=== PATIENT | female | born 1950 | race Caucasian/White ===

== ENCOUNTER → 2016-06-12 | Outpatient (CLI) | payer BC ==
--- NOTE | 2016-06-12 09:49 | MM ---
Reason for exam: history of breast cancer, conservation therapy. Last mammogram was performed 1 year ago. History: Patient is postmenopausal, has history of breast cancer at age 58, and had previous chest radiation therapy at age 58. Family history of breast cancer in mother at age 78, breast cancer in maternal cousin, and breast cancer in sister at age 55. Chemotherapy, 2010. Radiation therapy of the left breast, 2009. Malignant left breast needle localization of the left breast, March 31, 2009. Malignant left mammotome panel of the left breast, March 19, 2009. Malignant US left guided VAD of the left breast, March 19, 2009. Benign excisional biopsy of the left breast, January 05, 1998. Took hormonal contraceptives for 1 year beginning at age 20. Taking estrogen for 7 years 2 months beginning at age 51. Taking progesterone for 7 years 2 months beginning at age 51. Taking antineoplastic for 5 months beginning at age 59. Physical Findings: Nurse did not find any significant physical abnormalities on exam. MG 3D Diag Mammo W/Cad MERLIN Bilateral CC and MLO view(s) were taken. Prior study comparison: June 09, 2015, bilateral MG 3d diag mammo w/cad MERLIN. June 08, 2014, bilateral MG diagnostic mammo w CAD MERLIN. The breast tissue is heterogeneously dense. This may lower the sensitivity of mammography. Stable post operative left breast changes. No significant new findings when compared with previous films. These results were verbally communicated with the patient and result sheet given to the patient on 06/12/16. ASSESSMENT: Benign, BI-RAD 2 RECOMMENDATION: Follow-up diagnostic mammogram of both breasts in 1 year. Manage patient on a clinical basis.
== END | disposition home or self-care (01) ==
LOC: RADMAMWWP 08:49
PROVIDERS: ATTEND Obstetrics & Gynecology
DX: Z85.3 Personal history of malignant neoplasm of breast (principal)
CPT/HCPCS: 77051 ×2; G0204; G0279

== ENCOUNTER → 2016-06-12 | Outpatient (CLI) | payer BC ==
[2016-06-12 10:29] LABS: ALT 47 U/L (9-52); AST 30 U/L (14-36); Cholesterol 201 mg/dL (<200); Creatine Kinase 58 U/L (30-135); HDL Cholesterol 77 mg/dL (40-60); Triglycerides 78 mg/dL (<150)
== END | disposition home or self-care (01) ==
LOC: LABWHC1 09:32
PROVIDERS: ATTEND Internal Medicine
DX: E78.2 Mixed hyperlipidemia (principal)
CPT/HCPCS: 36415; 80061; 82550; 84450; 84460

== ENCOUNTER → 2017-01-19 | Outpatient (CLI) | payer BC ==
[2017-01-19 08:59] LABS: CH 30.4; CHCM 33.2; HCT 42.2 % (34.0-46.0); HDW 2.22; HGB 13.6 gm/dL (11.4-16.0); MCH 29.6 pg (25.0-35.0); MCHC 32.2 g/dL (31.0-37.0); MCV 91.9 fL (80.0-100.0); Mean Platelet Volume 7.4; RBC 4.59 m/uL (3.80-5.40); RDW 13.6 % (11.5-15.5); WBC 5.3 k/uL (3.8-10.6)
[2017-01-19 09:12] LABS: ALT 36 U/L (9-52); AST 30 U/L (14-36); Alkaline Phosphatase 65 U/L (38-126); Anion Gap 11 mmol/L; Blood Urea Nitrogen 16 mg/dL (7-17); Calcium 9.8 mg/dL (8.4-10.2); Carbon Dioxide 25 mmol/L (22-30); Chloride 108 mmol/L (98-107); Cholesterol 176 mg/dL (<200); Glucose 84 mg/dL (74-99); HDL Cholesterol 72 mg/dL (40-60); Non-African American GFR(MDRD) >60 (>60 ml/min/1.73 sqM); Potassium 4.5 mmol/L (3.5-5.1); Sodium 144 mmol/L (137-145); Total Bilirubin 0.9 mg/dL (0.2-1.3)
== END | disposition home or self-care (01) ==
LOC: LABWHC1 08:41
PROVIDERS: ATTEND Internal Medicine
DX: Z00.00 Encounter for general adult medical examination without abnormal findings (principal); I11.9 Hypertensive heart disease without heart failure; E03.9 Hypothyroidism, unspecified; E78.2 Mixed hyperlipidemia; K21.0 Gastro-esophageal reflux disease with esophagitis
CPT/HCPCS: 36415; 80053; 80061; 82272; 84439; 84443; 85027

== ENCOUNTER → 2017-05-04 | Outpatient (CLI) | payer BC ==
[2017-05-04 10:37] LABS: Anion Gap 7 mmol/L; Blood Urea Nitrogen 21 mg/dL (7-17); Calcium 10.5 mg/dL (8.4-10.2); Carbon Dioxide 28 mmol/L (22-30); Chloride 106 mmol/L (98-107); Creatine Kinase 57 U/L (30-135); Glucose 94 mg/dL (74-99); Magnesium 1.9 mg/dL (1.6-2.3); Non-African American GFR(MDRD) >60 (>60 ml/min/1.73 sqM); Potassium 4.8 mmol/L (3.5-5.1); Sodium 141 mmol/L (137-145)
== END | disposition home or self-care (01) ==
LOC: LABWHC1 09:45
PROVIDERS: ATTEND Psychiatry & Neurology Neurology
DX: G62.9 Polyneuropathy, unspecified (principal); R25.2 Cramp and spasm; Z85.3 Personal history of malignant neoplasm of breast
CPT/HCPCS: 36415; 80048; 82306; 82550; 82607; 83735; 84207

== ENCOUNTER → 2017-11-06 | Outpatient (CLI) | payer BC ==
--- NOTE | 2017-11-06 12:50 | BD ---
EXAMINATION TYPE: Axial Bone Density DATE OF EXAM: 11/06/2017 COMPARISON: 05.04.2014 CLINICAL HISTORY: 67 YR OLD FEMALE.....ICD-10 CODE: Z79.890 POST MENOPAUSAL W/O HRT, C50.311 BREAST CA Height: 64.5 Weight: 154 FRAX RISK QUESTIONS: Family History (Parent hip fracture): NO HIP FX Glucocorticoids (More than 3mos): YES (Ex: prednisone, prednisolone, methylprednisolone, dexamethasone, and hydrocortisone). History of Fracture in Adulthood: YES Secondary Osteoporosis: YES 2. Hyperthyroidism: YES RISK FACTORS HISTORY OF: RT FOOT AND TOES, >50 YRS OLD Family History of Osteoporosis: YES HER MOTHER WITHOUT HIP FX Active: YES Diet low in dairy products/other sources of calcium: NO Postmenopausal woman: NATURAL IN LATE 40s BCPs IN PAST ONLY FOR ABOUT 2 YRS, HRT FOR 5-6 YRS IN PAST HYPERTHYROIDISM ONLY, NOT PARATHYROID MEDICATIONS: Prednisone or other steroids: EXEMESTANE FOR BREAST CA, How Lon DAYS RECENTLY, 5 YRS IN PAST FOR FIRST BREAST CA Thyroid Medications: YES, SYNTHROID, FOR ABOUT 40 YRS Additional Medications: CALCIUM AND VIT D, HX OF CHEMO AND RADIATION, BP MEDS, STATINS FOR CHOLESTERO L Additional History: LT BREAST CANCER, 2009, RT BREAST CA, 2017...BILAT MASTECTOMY, GRAVES DISEASE EXAM MEASUREMENTS: Bone mineral densitometry was performed using the [employer] System. Bone mineral density as measured about the Lumbar spine is: ----- L1-L4(G/cm2): 1.133 T Score Values are as follows: ----- L1: -0.8 ----- L2: -1.2 ----- L3: -0.2 ----- L4: 0.3 ----- L1-L4: -0.4 Bone mineral density has: Increased 0.9% since study of: 05.04.2014 Bone mineral density about the R hip (g/cm2): 0.971 Bone mineral density about the L hip (g/cm2): 0.956 T Score values are as follows: -----R Neck: -0.5 -----L Neck: -0.4 -----R Total: -0.3 -----L Total: -0.4 Bone mineral density has: Decreased -2.2% since study of: 05.04.2014 FRAX%S: THERE IS A 19.1% CHANCE OF A MAJOR OSTEOPOROTIC FX AND A 1.1% FOR HIP FX....PROBABILITY OF FX IN 10 YRS TIME IMPRESSION: Normal bone density NOTE: T-SCORE=SD OF THE YOUNG ADULT MEAN.
== END | disposition home or self-care (01) ==
LOC: RADBDWWP 09:04
PROVIDERS: ATTEND Internal Medicine Hematology & Oncology
DX: C50.311 Malignant neoplasm of lower-inner quadrant of right female breast (principal); C50.412 Malignant neoplasm of upper-outer quadrant of left female breast; N95.1 Menopausal and female climacteric states; M85.89 Other specified disorders of bone density and structure, multiple sites; Z79.890 Hormone replacement therapy
CPT/HCPCS: 77080

== ENCOUNTER → 2018-07-09 | Outpatient (CLI) | payer BC ==
--- NOTE | 2018-07-09 10:39 | XR ---
EXAMINATION TYPE: XR chest 2V DATE OF EXAM: 07/09/2018 COMPARISON: 02/20/2013 HISTORY: Shortness of breath TECHNIQUE: Frontal and lateral views of the chest are obtained. FINDINGS: Scattered senescent parenchymal changes noted. Hyperinflation compatible with COPD. No evidence for infiltrate. No evidence for atelectasis. Heart size is stable. Mediastinal structures are stable and grossly unremarkable. No evidence for hilar prominence. Degenerative changes dorsal spine. IMPRESSION: 1. No evidence for acute pulmonary disease.
== END | disposition home or self-care (01) ==
LOC: RADXRMAIN 10:11
PROVIDERS: ATTEND Internal Medicine
DX: R05 Cough (principal)
CPT/HCPCS: 71046

== ENCOUNTER → 2018-10-25 | Outpatient (CLI) | payer BC ==
[2018-10-25 10:14] LABS: HCT 42.3 % (34.0-46.0); HGB 13.7 gm/dL (11.4-16.0); MCH 28.8 pg (25.0-35.0); MCHC 32.4 g/dL (31.0-37.0); MCV 88.9 fL (80.0-100.0); Mean Platelet Volume 6.9; Platelet Count 284 k/uL (150-450); RBC 4.76 m/uL (3.80-5.40); RDW 13.7 % (11.5-15.5); WBC 5.6 k/uL (3.8-10.6)
[2018-10-25 16:38] LABS: Albumin 4.5 g/dL (3.80-4.90); Albumin/Globulin Ratio 2.14 (1.60-3.17); Anion Gap 7.1 mmol/L (4.00-12.00); Calcium 9.9 mg/dL (8.7-10.3); Carbon Dioxide 26.9 mmol/L (21.6-31.8); Globulin 2.1 g/dL (1.6-3.3); LDL Cholesterol,Calculated 85.2 mg/dL (0.0-131.0); Potassium 4.6 mmol/L (3.5-5.5); Total Bilirubin 1.1 mg/dL (0.2-1.2); Total Protein 6.6 g/dL (6.2-8.2); VLDL Calculation 13.8 mg/dL (5.00-40.00)
[2018-10-25 16:47] LABS: T4, Free (Free Thyroxine) 1.5 ng/dL (0.80-1.80)
== END | disposition home or self-care (01) ==
LOC: LABWHC1 09:35
PROVIDERS: ATTEND Internal Medicine
DX: Z00.00 Encounter for general adult medical examination without abnormal findings (principal); E03.9 Hypothyroidism, unspecified; K21.0 Gastro-esophageal reflux disease with esophagitis; I11.9 Hypertensive heart disease without heart failure; C50.911 Malignant neoplasm of unspecified site of right female breast
CPT/HCPCS: 36415; 80053; 80061; 84439; 84443; 85027

== ENCOUNTER 2019-03-28 10:54 | Day surgery (SDC) | payer MEDICARE, BC ==
[2019-03-26 15:06] VITALS: BMI 24.2
[~2019-03-28 10:54] MED LIST: LACTATED RINGERS 1,000 ML IV SCH; LIDOCAINE 1% 20 ML VIAL (10MG/ML) FOR IV START INTRADERMA PRN
[2019-03-28 11:15] VITALS: RESP 16; TEMP 97
[2019-03-28] MEDS ORDERED: PROPOFOL 10 MG/ML 20 ML VIAL IV ONE (11:49)
--- NOTE | 2019-03-28 12:07 | P.PCN ---
Date of Procedure: 03/28/19 Procedure(s) Performed: BRIEF HISTORY: Patient is a 68-year-old pleasant female scheduled for an elective colonoscopy as a part of evaluation of prior history of colon polyps and family history of colon cancer. Her father was diagnosed with colon cancer at age 52. PROCEDURE PERFORMED: Colonoscopy. PREOPERATIVE DIAGNOSIS: History Of colon polyps/family history of colon cancer. IV sedation per Anesthesia. PROCEDURE: After informed consent was obtained, the patient, was brought into the endoscopy unit. IV sedation was administered by Anesthesia under continuous monitoring. Digital rectal examination was normal. Initially the Olympus CF-160 flexible video pediatric colonoscope was then inserted in the rectum, gradually advanced into the cecum without any difficulty. Careful examination was performed as the scope was gradually being withdrawn. Ileocecal valve and the appendiceal orifice were visualized and appeared normal. Prep was excellent. Mucosa of the cecum, ascending colon, transverse colon, descending colon, sigmoid colon, and rectum appeared normal. Moderate left-sided diverticulosis seen. Retroflexion was performed in the rectum and no lesions were seen. The patient tolerated the procedure well. IMPRESSION: Normal-appearing colon from rectum to cecum with no evidence of colorectal neoplasia . Moderate left-sided diverticulosis. RECOMMENDATIONS: Findings of this examination were discussed with the patient as well as a family. She was advised to have a repeat surveillance colonoscopy in 5 years from now because of the family history of colon cancer and prior history of colon polyps.
[2019-03-28] MEDS ORDERED: IV FLUID CONTINUATION 1,000 ML IV ONE (12:10)
[2019-03-28 12:12] VITALS: BP 122/77; PULSE 81
== END 2019-03-28 12:48 | disposition home or self-care (01) ==
LOC: ORWHC2ENDO 10:54
PROVIDERS: ATTEND Internal Medicine Gastroenterology
DX: Z12.11 Encounter for screening for malignant neoplasm of colon (principal); K57.30 Diverticulosis of large intestine without perforation or abscess without bleeding; Z86.010 Personal history of colon polyps; Z80.0 Family history of malignant neoplasm of digestive organs; I25.10 Atherosclerotic heart disease of native coronary artery without angina pectoris; I10 Essential (primary) hypertension; E78.5 Hyperlipidemia, unspecified; C50.919 Malignant neoplasm of unspecified site of unspecified female breast; E07.9 Disorder of thyroid, unspecified; K57.90 Diverticulosis of intestine, part unspecified, without perforation or abscess without bleeding; Z79.811 Long term (current) use of aromatase inhibitors; Z79.82 Long term (current) use of aspirin; Z79.890 Hormone replacement therapy; Z79.899 Other long term (current) drug therapy; Z88.5 Allergy status to narcotic agent; Z88.2 Allergy status to sulfonamides
CPT/HCPCS: J2704; G0105

== ENCOUNTER → 2019-11-21 | Outpatient (CLI) | payer MEDICARE, BC ==
--- NOTE | 2019-11-24 08:01 | BD ---
EXAMINATION TYPE: Axial Bone Density DATE OF EXAM: 11/21/2019 COMPARISON: 11/06/2017 CLINICAL HISTORY: Postmenopausal female. Height: 64.5 IN Weight: 156 LBS RISK FACTORS HISTORY OF: Family History of Osteoporosis: YES MOTHER Active: YES Postmenopausal woman: AGE 49 Take estrogen and/or progesterone medications: NOT NOW How lon YEARS MEDICATIONS: Thyroid Medications: YES Which medication: Levothyroxine How Lon+ YEARS Additional Medications: CALCIUM, VIT D, LEVOTHYROXINE, 81 MG ASPIRIN, ENALAPRIL, ATORVASTATIN, EXEMES TANE, MAGNESIUM, K COMPLEX, B VIT Additional History: BREAST CANCER WITH CHEMO AND RADIATION (LT BREAST 2008); BREAST CANCER (RT DONALD AST 2018) EXAM MEASUREMENTS: Bone mineral densitometry was performed using the [employer] System. Bone mineral density as measured about the Lumbar spine is: ----- L1-L4(G/cm2): 1.043 T Score Values are as follows: ----- L2: -1.5 ----- L3: -0.7 ----- L4: -1.0 ----- L1-L4: -1.1 Bone mineral density has: Decreased -7.4% since study of: 11/06/2017 Bone mineral density about the R hip (g/cm2): 0.963 Bone mineral density about the L hip (g/cm2): 0.960 T Score values are as follows: -----R Neck: -0.6 -----L Neck: -0.7 -----R Total: -0.3 -----L Total: -0.3 Bone mineral density has: Increased 0.5% since study of: 11/06/2017 IMPRESSION: Osteopenia (T Score between -2.5 and -1) at 2 consecutive levels in the low back. Bone density decrea se or diminished from prior at this level. There is slightly increased risk of fracture and the patient may be considered for treatment. Re-Screen 2-5 years. NOTE: T-SCORE=SD OF THE YOUNG ADULT MEAN.
== END | disposition home or self-care (01) ==
LOC: RADBDWWP 10:27
PROVIDERS: ATTEND Internal Medicine Hematology & Oncology
DX: M85.88 Other specified disorders of bone density and structure, other site (principal); Z79.890 Hormone replacement therapy; Z88.2 Allergy status to sulfonamides; Z88.5 Allergy status to narcotic agent
CPT/HCPCS: 77080

== ENCOUNTER → 2021-11-21 | Outpatient (CLI) | payer MEDICARE ==
--- NOTE | 2021-11-21 17:42 | BD ---
EXAMINATION TYPE: Axial Bone Density DATE OF EXAM: 11/21/2021 COMPARISON: 11/21/2019 CLINICAL HISTORY: 71 years year old Female. ICD-10 CODE: Z79.890 POST MENOPAUSAL WITH HRT Height: 64.5 IN Weight: 146 LBS RISK FACTORS HISTORY OF: Family History of Osteoporosis: YES MOTHER Active: YES Postmenopausal woman: AGE 54 Take estrogen and/or progesterone medications: NOT NOW How long: TOOK FOR 5 YEARS MEDICATIONS: Thyroid Medications: YES Which medication: Levothyroxine How Lon+ YEARS Additional Medications: CALCIUM, VIT D, EXEMESTANE,BLOOD PRESSURE MEDS, CHOLESTEROL MEDS, ASPIRIN, LE VOTHYROXINE, MULTI VIT ,OMEGA PLUS TURMERIC, DAILY GREENS, VIT C, Additional History: BREAST CANCER WITH CHEMO AND RADIATION EXAM MEASUREMENTS: Bone mineral densitometry was performed using the [employer] System. Bone mineral density as measured about the Lumbar spine is: ----- L1-L4(G/cm2): 1.077 T Score Values are as follows: ----- L1: -1.6 ----- L2: -1.4 ----- L3: -0.6 ----- L4: -0.2 ----- L1-L4: -0.9 Bone mineral density has: Increased 3.7% since study of: 11/21/2019 Bone mineral density about the R hip (g/cm2): 0.961 Bone mineral density about the L hip (g/cm2): 0.954 T Score values are as follows: -----R Neck: -0.6 -----L Neck: -0.6 -----R Total: -0.1 -----L Total: -0.2 Bone mineral density has: Increased 2.4% since study of: 11/21/2019 FRAX%s: The graph provided illustrates a 8.0 chance for a major osteoporotic fx and a 0.6 chance for the hips probability for fx in 10 years time. IMPRESSION: Normal (Values between +1 and -1 indicate normal bone mass). Consider repeating this study in 5 year s or sooner if there is some new clinical indication. NOTE: T-SCORE=SD OF THE YOUNG ADULT MEAN.
== END | disposition home or self-care (01) ==
LOC: RADBDWWP 12:27
PROVIDERS: ATTEND Internal Medicine Hematology & Oncology
DX: C50.311 Malignant neoplasm of lower-inner quadrant of right female breast (principal); Z78.0 Asymptomatic menopausal state
CPT/HCPCS: 77080

== ENCOUNTER → 2022-06-02 | Outpatient (CLI) | payer MEDICARE ==
--- NOTE | 2022-06-03 07:38 | MR ---
EXAMINATION TYPE: MR brain wo/w con DATE OF EXAM: 06/02/2022 9:13 AM CLINICAL INDICATION:Female, 71 years old with history of R51.9; COMPARISON: None TECHNIQUE: Multi planar, multi sequence imaging was performed through the brain including: T1, T2, In version recovery, susceptibility weighted imaging and gradient echo imaging and Diffusion weighted im aging. The patient was then given intravenous contrast and multi planar, T1 fat-saturation images wer e obtained. IV Contrast: 7 cc Gadavist FINDINGS: The issa-white junctions, ventricular system, basal cisterns appear unremarkable. Diffusion-weighted imaging shows no evidence of restricted diffusion to suggest acute/subacute infarct. Intracranial art erial flow voids are maintained. Midline structures show no abnormality. Scattered foci of high T2 si gnal intensity are seen within the periventricular white matter. The susceptibility weighted images d o not reveal any evidence for micro-hemorrhage. After administration of gadolinium, no abnormal enhan cement is seen. The bone marrow signal is within normal limits. Paranasal sinuses and mastoid air cells: Mild scattered paranasal sinus disease. Visualized orbits: Orbital contents are intact. IMPRESSION: 1. No evidence of intracranial mass, acute/subacute infarct, or abnormal enhancement. 2. Nonspecific white matter changes, likely related to small vessel ischemic disease
== END | disposition home or self-care (01) ==
LOC: RADMRIMAIN 08:23
PROVIDERS: ATTEND Internal Medicine
DX: R90.82 White matter disease, unspecified (principal); R51.9 Headache, unspecified
CPT/HCPCS: 70553; A9585

== ENCOUNTER → 2022-10-25 | Outpatient (CLI) | payer MEDICARE ==
--- NOTE | 2022-10-25 14:19 | US ---
EXAMINATION TYPE: US kidneys/renal and bladder DATE OF EXAM: 10/25/2022 COMPARISON: CT 09/30/2013. CLINICAL INDICATION: Female, 72 years old with history of N18.31 CHRONIC KIDNEY DISEASE, STAGE 3A; Ab normal labs. No pain. EXAM MEASUREMENTS: Right Kidney: 9.6 x 4.3 x 4.0 cm Left Kidney: 9.4 x 4.3 x 4.7 cm Right Kidney: Medial anechoic lesion at hilum = 1.9 x 1.1 cm. Upper lateral cystic appearing lesion= 1.0 x 1.1 x 0.8 cm Left Kidney: No hydronephrosis or masses seen Bladder: distended, anechoic Bilateral Jets seen IMPRESSION: 1. No evidence for obstructive uropathy. 2. Right kidney renal sinus anechoic area could represent peripelvic cyst versus dilated calyx.
== END | disposition home or self-care (01) ==
LOC: RADUSWWP 13:00
PROVIDERS: ATTEND Internal Medicine
DX: N18.31 Chronic kidney disease, stage 3a (principal)
CPT/HCPCS: 76770

== ENCOUNTER → 2022-11-14 | Outpatient (CLI) | payer MEDICARE ==
--- NOTE | 2022-11-15 19:59 | MR ---
EXAMINATION TYPE: MR kidney wo/w con DATE OF EXAM: 11/14/2022 3:04 PM INDICATION: Patient age:Female; 72 years old; Reason for study: N28.1;. Renal cyst, Abn U/S, Hx Breast Cancer COMPARISON: Ultrasound 10/25/2022 TECHNIQUE: Multiplanar multi-sequence imaging was performed without contrast. Post contrast imaging was performed. Post IV contrast subtraction images were also submitted for review. IV Contrast: 6.5 cc Gadavist FINDINGS: LOWER CHEST: Bilateral breast implants are present. ABDOMEN Liver: Left hepatic lobe cysts with internal thin septation measuring 14 x 10 mm. No abnormal postcon trast enhancement. Gallbladder and Bile ducts: The gallbladder appears surgically absent. Common hepatic bile duct measu ring 12 mm and common bile duct measuring 6 mm. These findings can be seen in post cholecystectomy ph ysiology.: Pancreas: Unremarkable. Spleen: Unremarkable. Adrenal glands: Unremarkable. Kidneys: No suspicious masses. Findings an ultrasound correlate with renal pelves. Right cortical eve al cyst measuring 10 mm which is high T2 signal in the superior pole. No abnormal postcontrast enhanc ement. Stomach and Bowel: Unremarkable as visualized. Peritoneum: No evidence of pneumoperitoneum or free fluid. Vasculature: Unremarkable. No aortic aneurysm. Musculoskeletal: The osseous structures appear intact. Lymph Nodes: No gross evidence for lymphadenopathy. Abdominal wall: Unremarkable. IMPRESSION: Prominent bilateral renal pelves and a simple right renal cyst. No renal masses. Findings similar to ultrasound findings from 10/25/2022
== END | disposition home or self-care (01) ==
LOC: RADMRIMAIN 13:54
PROVIDERS: ATTEND Internal Medicine
DX: N28.1 Cyst of kidney, acquired (principal)
CPT/HCPCS: 74183; A9585

== ENCOUNTER → 2023-01-01 | Outpatient (CLI) | payer MEDICARE ==
[2023-01-01 13:30] LABS: Basophils # (A) 0.06 X 10*3/uL (0.00-0.10); Basophils % (A) 1.3 %; Eosinophils # (A) 0.21 X 10*3/uL (0.04-0.35); Eosinophils % (A) 4.6 %; HCT 43.6 % (37.2-46.3); Lymphocytes # (A) 1.23 X 10*3/uL (0.90-5.00); Lymphocytes % (A) 26.9 %; MCH 29.7 pg (27.0-32.0); MCHC 32.1 d/dL (32.0-37.0); MCV 92.4 FL (80.0-97.0); Mean Platelet Volume 10.2 FL (9.5-12.2); Monocytes # (A) 0.43 X 10*3/uL (0.20-1.00); Monocytes % (A) 9.4 %; NRBC Per 100 WBC 0 X 10*3/uL (0.00-0.01); Neutrophils # (A) 2.63 X 10*3/uL (1.80-7.70); Neutrophils % (A) 57.6 %; Platelet Count 256 X 10*3/uL (140-440); RBC 4.72 X 10*6/uL (4.10-5.20); RDW 12.6 % (11.5-14.5); WBC 4.57 X 10*3/uL (4.50-10.00)
[2023-01-01 14:17] LABS: ALT 24 U/L (8-44); AST 24 U/L (13-35); Albumin 4.5 d/dL (3.8-4.9); Albumin/Globulin Ratio 2.05 Ratio (1.60-3.17); Alkaline Phosphatase 78 U/L (41-126); Blood Urea Nitrogen 15.7 mg/dL (9.0-27.0); Calcium 10.3 mg/dL (8.7-10.3); Carbon Dioxide 28.1 mmol/L (21.6-31.8); Chloride 106 mmol/L (96-109); Chol/HDL Ratio 2.78 Ratio; Globulin 2.2 d/dL (1.6-3.3); Glucose 92 mg/dL (70-110); LDL Cholesterol,Calculated 99.6 mg/dL (0.0-131.0); Potassium 4.9 mmol/L (3.5-5.5); Sodium 143 mmol/L (135-145); Total Bilirubin 0.8 mg/dL (0.3-1.2); Total Protein 6.7 d/dL (6.2-8.2); VLDL Calculation 11.06 mg/dL (5.00-40.00)
== END | disposition home or self-care (01) ==
LOC: LABWHC1 08:37
PROVIDERS: ATTEND Internal Medicine
DX: I10 Essential (primary) hypertension (principal)
CPT/HCPCS: 36415; 80053; 80061; 84443; 85025

== ENCOUNTER → 2023-01-05 | Outpatient (CLI) | payer MEDICARE ==
--- NOTE | 2023-01-05 09:16 | US ---
EXAMINATION TYPE: US liver DATE OF EXAM: 01/05/2023 COMPARISON: Renal ultrasound 10/25/2022, MR kidney 11/14/2022 CLINICAL INDICATION: Female, 72 years old with history of K76.89 DISEASE OF LIVER; gb surgically nuzhat hamilton 45 yrs ago, recent MRI showed cysts TECHNIQUE: Multiple sonographic images of the right upper quadrant are obtained. FINDINGS: EXAM MEASUREMENTS: Liver Length: 12.6 cm Gallbladder Wall: surgically absent CBD: 1.1 cm Right Kidney: 9.6 x 4.8 x 4.5 cm MULTIPLE NEEDLE STITCHER NOTES: Pancreas: wnl Liver: wnl, seen with a 1.5cm side by side cyst at the caudate lobe Gallbladder: Surgically absent CBD: upper limits in size Right Kidney: wnl, seen with a 8mm cyst at the lateral upper pole The visualized pancreas is unremarkable. There are 2 simple appearing adjacent cysts within the cauda te lobe. Nonspecific morphology. Gallbladder is surgically absent. Common bile duct is mildly dilated which is not unexpected in the setting of cholecystectomy. Right kidney demonstrates no evidence of hydronephrosis, solid mass, or nephrolithiasis. Simple cyst within the lateral upper pole measures 8 mm. IMPRESSION: 1. No acute process. 2. Simple hepatic and right renal cysts. Extent 3. Postcholecystectomy changes.
== END | disposition home or self-care (01) ==
LOC: RADUSWWP 08:10
PROVIDERS: ATTEND Internal Medicine
DX: K76.89 Other specified diseases of liver (principal); N28.1 Cyst of kidney, acquired; Z90.49 Acquired absence of other specified parts of digestive tract
CPT/HCPCS: 76705

== ENCOUNTER → 2023-11-23 | Outpatient (CLI) | payer MEDICARE ==
--- NOTE | 2023-11-27 15:37 | BD ---
EXAMINATION TYPE: Axial Bone Density DATE OF EXAM: 11/23/2023 CLINICAL HISTORY: 73 years old Female. ICD-10 CODE: M859 DISORDER OF BONE DENSITY Height: 64.4" Weight: 152.2lbs FRAX RISK QUESTIONS: Alcohol (3 or more units per day): No Family History (Parent hip fracture): No Glucocorticoids (More than 3mos): No (Ex: prednisone, prednisolone, methylprednisolone, dexamethasone, and hydrocortisone). History of Fracture in Adulthood: Yes Secondary Osteoporosis: 1. Type 1 Diabetes: No 2. Hyperthyroidism: No 3. Menopause before 45: No 4. Malnutrition: No 5. Chronic liver disease: No Rheumatoid Arthritis: No Current Tobacco Use: No RISK FACTORS HISTORY OF: Hip Fracture (Right/Left): No Spine Fracture: No History of Wrist Fracture: No Surgery to Spine/Hip(right/left)/Wrist (right/left): No MEDICATIONS: Thyroid Medications: Yes Which medication: Levothyroxine How Lon+ years Osteoporosis Medications: No EXAM MEASUREMENTS: Bone mineral densitometry was performed using the [employer] System. Bone mineral density as measured about the Lumbar spine is: ----- L1-L4(G/cm2): 1.074 T Score Values are as follows: ----- L1: -1.5 ----- L2: -1.4 ----- L3: -0.9 ----- L4: -0.1 ----- L1-L4: -0.9 Z Score Values are as follows: ----- L1: 0.1 ----- L2: 0.2 ----- L3: 0.7 ----- L4: 1.5 ----- L1-L4: 0.7 Bone mineral density has: decrease -0.3% since study of: 11/21/2021 Bone mineral density about the R hip (g/cm2): 0.988 Bone mineral density about the L hip (g/cm2): 0.992 T Score values are as follows: -----R Neck: -0.2 -----L Neck: -0.2 -----R Total: -0.2 -----L Total: -0.1 Z Score values are as follows: -----R Neck: 1.5 -----L Neck: 1.5 -----R Total: 1.3 -----L Total: 1.3 Bone mineral density has: decreased -0.1% since study of: 11/21/2021 FRAX%s: The graph provided illustrates a 12.2% chance for a major osteoporotic fx and a 0.8% chance f or the hips probability for fx in 10 years time. IMPRESSION: Normal (Values between +1 and -1 indicate normal bone mass). Consider repeating this study in 5 year s or sooner if there is some new clinical indication. NOTE: T-SCORE=SD OF THE YOUNG ADULT MEAN.
== END | disposition home or self-care (01) ==
LOC: RADBDWWP 10:02
PROVIDERS: ATTEND Internal Medicine Hematology & Oncology
DX: C50.311 Malignant neoplasm of lower-inner quadrant of right female breast (principal); C50.412 Malignant neoplasm of upper-outer quadrant of left female breast; M85.88 Other specified disorders of bone density and structure, other site; I10 Essential (primary) hypertension; Z71.89 Other specified counseling
CPT/HCPCS: 77080

== ENCOUNTER → 2024-01-28 | Outpatient (CLI) | payer MEDICARE ==
[2024-01-28 15:26] LABS: African American GFR (CKD) 75 (>60 ml/min/1.73 sqM); Blood Urea Nitrogen 11 mg/dL (7-17); Non-African American GFR(CKD) 65 (>60 ml/min/1.73 sqM)
--- NOTE | 2024-01-28 15:55 | CT ---
EXAMINATION TYPE: CT abdomen w con DATE OF EXAM: 01/28/2024 COMPARISON: 09/29/2013 HISTORY: abdominal pain, hx of diverticulosis. CT DLP: 660 mGycm Automated exposure control for dose reduction was used. TECHNIQUE: Helical acquisition of images was performed from the lung bases through the top of iliac crest to include entire abdomen. CONTRAST: Performed with Oral Contrast and with IV Contrast, patient injected with 100 mL of Isovue 300. FINDINGS: The lung bases are clear. There is a small hiatal hernia. There is surgical absence of the gallbladder. There is no biliary ductal dilatation. There is no focal mass or organomegaly involving the liver, pancreas, spleen or adrenal glands. There is a small simple hepatic cyst left lobe of the liver. There is no solid renal mass or hydronephrosis and there is homogeneous contrast enhancement of the r enal parenchyma. The caliber the abdominal aorta is normal is no retroperitoneal adenopathy or hemorr amy. The bowel loops are normal in caliber and there is no evidence of dilatation or obstruction. No infla mmatory changes are identified in the bowel wall or mesentery. There is no free intraperitoneal air or fluid. The osseous structures and soft tissues are intact. IMPRESSION: Incidental findings as described above.. Limited evaluation for diverticulitis given the lack of pelv ic images. No acute changes within the abdomen.
== END | disposition home or self-care (01) ==
LOC: RADCTMAIN 14:37
PROVIDERS: ATTEND Internal Medicine
DX: K57.92 Diverticulitis of intestine, part unspecified, without perforation or abscess without bleeding (principal)
CPT/HCPCS: 36415; 74160; 82565; 84520

== ENCOUNTER → 2024-03-21 | Outpatient (CLI) | payer MEDICARE ==
[2024-03-21 15:21] LABS: African American GFR (CKD) 75 (>60 ml/min/1.73 sqM); Blood Urea Nitrogen 17 mg/dL (7-17); Non-African American GFR(CKD) 65 (>60 ml/min/1.73 sqM)
--- NOTE | 2024-03-21 22:42 | CT ---
EXAMINATION TYPE: CT abdomen pelvis wo/w con DATE OF EXAM: 03/21/2024 COMPARISON: 01/28/2024 INDICATION: Severe abdominal pain R/LLQ x4 days. DLP: 914 mGycm, Automated exposure control for dose reduction was used. CONTRAST: 100ml mL of Isovue 300. Study performed with Oral Contrast TECHNIQUE: Axial images were obtained from above the diaphragm to the pubic rami in the axial plane a t 5 mm thick sections. Reconstructed images are reviewed on the computer in the coronal plane. FINDINGS: Limited CT sections are obtained the lung bases. The lung bases are clear. CT ABDOMEN: Liver: Cystic disease within the medial right lower liver. Spleen: Normal Pancreas: Normal Adrenal glands: The adrenal glands are normal. Gallbladder: Not identified. Correlate with surgical history Kidneys: No masses are evident. No hydronephrosis is present. No cysts are present. No renal stone s are evident. Aorta: Vascular calcification is within the aorta. Inferior vena cava: Normal. CT PELVIS: Loops of bowel within the abdomen and pelvis are normal. Multiple diverticuli within the sigmoid col on. No adjacent inflammatory changes to suggest acute diverticulitis evident There are loops of bow el which are incompletely distended or lack oral contrast limiting their evaluation. Appendix: Normal as visualized. Urinary bladder: Normal. Genitourinary structures: Uterus and adnexa appear normal. Osseous structures: No suspicious lytic or sclerotic lesions. IMPRESSION: 1. Diverticulosis without acute diverticulitis. 2. Normal appendix [facility], Workstation: [facility], 03/21/2024 10:39 PM
--- NOTE | 2024-03-24 08:15 | US ---
EXAMINATION TYPE: US transvaginal DATE OF EXAM: 03/21/2024 COMPARISON: CT abdomen and pelvis 03/21/2024 CLINICAL INDICATION: Female, 73 years old with history of R1031, R1032 ABD PAIN LOWER QUAD; Patient s tates having history of ovarian cyst. TECHNIQUE: Transvaginal (TV: FINDINGS: Date of LMP: BUILD MANAGER, EXAM MEASUREMENTS: Uterus: 5.3 x 3.8 x 2.9 cm Endometrial Stripe: 0.6 cm Right Ovary: 1.9 x 1.5 x 1.2 cm Left Ovary: 1.5 x 0.8 x 0.9 cm 1. Uterus: Anteverted Heterogenous. Posterior mid hypoechoic lesion = 1.8 x 1.7 x 1.1 cm 2. Endometrium: Mildly thickened 3. Right Ovary: Anechoic lesion seen - 1.8 x 0.9 x 1.2 cm 4. Left Ovary: wnl 5. Bilateral Adnexa: wnl 6. Posterior cul-de-sac: no free fluid IMPRESSION: 1. Mildly thickened endometrium measuring up to 6 mm. Mildly thickened for patient's postmenopausal s tatus and raises concern for possible endometrial carcinoma versus hyperplasia. Consider short-term r epeat ultrasound and/or glass melt operator referral. 2. Posterior mid uterine 1.8 cm lesion. Probable fibroid. 3. Simple appearing right ovarian 1.8 cm cyst. Follow-up ultrasound in one year is recommended to ass ess for stability. [facility], , 03/24/2024 8:13 AM
== END | disposition home or self-care (01) ==
LOC: RADCTMAIN 14:28
PROVIDERS: ATTEND Internal Medicine
CPT/HCPCS: 36415; 74178; 76830; 82565; 84520

== ENCOUNTER → 2024-06-11 | Day surgery (SDC) | payer MEDICARE ==
[2024-06-05 14:52] VITALS: BMI 25.0
[~2024-06-11] MED LIST changes: +LIDOCAINE 1% (10MG/ML) FOR IV START INTRADERMA PRN; -LIDOCAINE 1% 20 ML VIAL (10MG/ML) FOR IV START INTRADERMA PRN; +LIDOCAINE 1% INJ 10MG/ML (20 ML MDV) ONE; +ONDANSETRON 4 MG/2 ML VIAL IVP PRN; +PROPOFOL 10 MG/ML 20 ML VIAL IV ONE
[2024-06-11 07:15] VITALS: TEMP 98
[2024-06-11] MEDS: IV FLUID CONTINUATION 1,000 ML IV ONE (07:15)
--- NOTE | 2024-06-11 07:49 | P.PCN ---
Date of Procedure: 06/11/24 Procedure(s) Performed: Brief history: Patient is a pleasant 73-year-old white female scheduled for an elective upper endoscopy as well as colonoscopy as a part of evaluation of epigastric pain occasional heartburn and screening for colon cancer. Father was diagnosed with colon cancer at age 60. Procedure performed: Esophagogastroduodenoscopy biopsy Colonoscopy with snare polypectomy Preoperative diagnosis: Epigastric pain and GERD Screening for colon cancer and family history of colon cancer Anesthesia: MAC Procedure: After informed consent was obtained from the patient was brought into the endoscopy unit and IV sedation was administered by anesthesia under continuous monitoring. Initially upper endoscopy was done. The Olympus GF 160 video endoscope was inserted inserted into the mouth and esophagus intubated without any difficulty and was gradually advanced into the stomach and duodenum and carefully examined. The bulb and second part of the duodenum appeared normal. The scope was then withdrawn into the stomach adequately insufflated with air and upon careful examination the antrum had mild gastritis and biopsies were done from this area. Mucosa of the body, cardia and fundus appeared normal. The scope was then withdrawn into the esophagus. The GE junction was located at 40 cm to the incisors. It appeared regular with no erythema erosions or ulcerations. Rest of the esophagus appeared normal. Patient tolerated the procedure well. At this time the patient continued to remain sedation. Initial digital rectal examination was normal. Olympus CF 160 video colonoscope was then inserted into the rectum and gradually advanced to the cecum without any difficulty. Careful examination was performed as the scope was gradually being withdrawn. The prep was excellent. The cecum appeared normal. The ascending colon there was a 6 mm polyp removed by cold snare polypectomy. In the transverse colon there was a 1 cm polyp removed by cold snare polypectomy. Rest of the, ascending colon, transverse colon, descending colon, sigmoid colon and rectum appeared normal. Scattered sigmoid diverticulosis. Retroflexion was performed in the rectum and no lesions were noted. Patient tolerated the procedure well. Impression: 1. Upper endoscopy revealed mild antral gastritis but no evidence of esophagitis or peptic ulcer disease 2. Colonoscopy revealed: 6 mm flat ascending colon polyp status post snare polypectomy 1 Centimeter flat transverse colon polyp status post polypectomy Scattered sigmoid diverticulosis Recommendations: Findings of this examination were discussed with the patient as well as her family. She was advised to follow-up with the biopsy results. If the biopsy reveals adenoma she can have repeat colonoscopy in 3 years
[2024-06-11 08:21] VITALS: BP 164/84; PULSE 63; RESP 16
== END ==
LOC: ORWHC2ENDO 06:53
PROVIDERS: ATTEND Internal Medicine Gastroenterology
DX: Z12.11 Encounter for screening for malignant neoplasm of colon (principal); D12.2 Benign neoplasm of ascending colon; D12.3 Benign neoplasm of transverse colon; D72.10 Eosinophilia, unspecified; K29.50 Unspecified chronic gastritis without bleeding; K57.30 Diverticulosis of large intestine without perforation or abscess without bleeding; K21.9 Gastro-esophageal reflux disease without esophagitis; E03.9 Hypothyroidism, unspecified; I10 Essential (primary) hypertension; E78.5 Hyperlipidemia, unspecified; F17.200 Nicotine dependence, unspecified, uncomplicated; Z79.82 Long term (current) use of aspirin; Z79.899 Other long term (current) drug therapy; Z80.0 Family history of malignant neoplasm of digestive organs; Z79.890 Hormone replacement therapy; Z88.5 Allergy status to narcotic agent; Z88.2 Allergy status to sulfonamides; Z90.49 Acquired absence of other specified parts of digestive tract; Z98.890 Other specified postprocedural states
CPT/HCPCS: 45385; 43239; J2003; J2704; 88305